=== PATIENT | male | born 1950 | race Caucasian/White ===

== ENCOUNTER 2023-02-06 21:17 | Emergency (ER) | payer OTHER ==
[~2023-02-06] VITALS: Ht 180.3 cm; Wt 127.0 kg
[2023-02-06 21:31] VITALS: BP_SYST 130
[2023-02-06 23:38] VITALS: BP_SYST 126
== END 2023-02-06 23:38 | disposition home or self-care (01) ==
LOC: SED 21:17
DX: S09.90XA Unspecified injury of head, initial encounter (principal); W18.39XA Other fall on same level, initial encounter; Y93.89 Activity, other specified; Y92.89 Other specified places as the place of occurrence of the external cause; Y99.8 Other external cause status
CPT/HCPCS: 70450-TC; 72125-TC; 76376; 99284